=== PATIENT | female | born 1960 | race American Indian/Alaskan Native ===

== ENCOUNTER 2021-11-29 16:29 | Emergency (ER) | payer SELFPAY ==
[2021-11-29 17:03] VITALS: BP 166/105
[2021-11-29] MEDS ORDERED: ONDANSETRON 4 MG/2 ML INJ IV ONE (17:21)
[2021-11-29] MEDS ORDERED: FAMOTIDINE 20 MG/2 ML INJ IV ONE (17:21)
[2021-11-29] MEDS ORDERED: MORPHINE 4 MG/1 ML INJ IV ONE (17:21)
[2021-11-29] MEDS ORDERED: SODIUM CHLORIDE 0.9% 1000 ML 1,000 ML IV ONE (17:21)
--- NOTE | 2021-11-29 17:24 | Emergency Department Report ---
ED General Adult HPI - General Chief complaint: Nausea/Vomiting/Diarrhea Stated complaint: Abdominal pain, nausea, vomiting PUI?: No Time Seen by Provider: 11/29/21 17:14 Source: patient, RN notes reviewed Mode of arrival: Ambulatory Limitations: No Limitations - History of Present Illness Initial comments: The patient was evaluated in the emergency department for symptoms described in the history of present illness. He/she was evaluated in the context of the global COVID-19 pandemic, which necessitated consideration that the patient might be at risk for infection with the virus that causes COVID-19. Institutional protocols and algorithms that pertain to the evaluation of patients at risk for COVID-19 are in a state of rapid change based on information released by regulatory bodies including the CDC and federal and s tsang organizations. These policies and algorithms were followed during the patient's care in the emergency department. Please note that these policies, procedures and recommendations changed on a rapid basis. The patient is a 61-year-old female. She is not known to myself previously. She presents to the ER today with a complaint of diffuse abdominal pain, with a history of nausea and vomiting. This has been going on the past few days. She also endorses chest wall pain, associated with nausea and vomiting, but reports no chest pain which preceded nausea and vomiting. She denies travel, surgery, immobilization, leg pain, leg swelling, DVT/PE risk factors. She does consume alcohol recreationally, and she reports that she consumed alcohol earlier on this morning. She is also a tobacco smoker, and endorses a cough, productive of phlegm. The patient also states that she is not homicidal or suicidal. She denies irritative and obstructive urinary symptoms. -: Gradual, hour(s), days(s) Location: chest, abdomen Quality: aching Consistency: constant Improves with: none Worsens with: eating - Related Data Allergies Allergy/AdvReac Type Severity Reaction Status Date / Time No Known Allergies Allergy Unverified 11/29/21 17:02 ED Review of Systems ROS: Stated complaint: FLU LIKE SYMPTOMS Other details as noted in HPI Constitutional: malaise, weakness Eyes: denies: eye discharge Respiratory: cough, shortness of breath Cardiovascular: chest pain Gastrointestinal: abdominal pain, nausea, vomiting. denies: hematemesis, melena, hematochezia Genitourinary: denies: dysuria Neurological: weakness (Generalized weakness) Psychiatric: denies: homicidal thoughts, suicidal thoughts ED Physical Exam - General Limitations: No Limitations General appearance: alert, anxious - Head Head exam: Present: atraumatic, normocephalic - Eye Eye exam: Present: normal appearance, EOMI. Absent: nystagmus - ENT ENT exam: Present: normal exam, normal orophraynx, mucous membranes moist, normal external ear exam - Neck Neck exam: Present: normal inspection, full ROM. Absent: tenderness, meningismus - Respiratory Respiratory exam: Present: decreased breath sounds. Absent: respiratory distress, wheezes, rales, rhonchi, stridor - Cardiovascular Cardiovascular Exam: Present: regular rate, normal rhythm, normal heart sounds. Absent: bradycardia, tachycardia, irregular rhythm, systolic murmur, diastolic murmur, rubs, gallop - GI/Abdominal GI/Abdominal exam: Present: soft, tenderness. Absent: distended, guarding, rebound, rigid, pulsatile mass - Extremities Exam Extremities exam: Present: normal inspection, full ROM, other (2+ pulses noted in the bilateral upper and lower extremities. There is no palpable cord. negative Homans sign. Muscular compartments are soft. The pelvis is stable.). Absent: pedal edema, calf tenderness - Back Exam Back exam: Present: normal inspection, full ROM. Absent: tenderness, CVA tenderness (R), CVA tenderness (L), paraspinal tenderness, vertebral tenderness - Neurological Exam Neurological exam: Present: alert, oriented X3, normal gait, other (No facial droop. Tongue midline. Extraocular movements intact bilaterally. Facial sensation intact to light touch in V1, V2, V3 distribution bilaterally. 5 and a 5 strength in 4 extremities. Sensation intact to light touch in 4 extremities.). Absent: motor sensory deficit - Psychiatric Psychiatric exam: Present: anxious. Absent: homicidal ideation, suicidal ideation - Skin Skin exam: Present: warm, dry, intact, normal color. Absent: rash ED Course Vital Signs 11/29/21 17:02 Temperature 98.2 F Pulse Rate 109 H Respiratory 16 Rate Blood Pressure 166/105 [Right] O2 Sat by Pulse 98 Oximetry ED Medical Decision Making - Lab Data Result diagrams: 11/29/21 17:30 11/29/21 17:30 Vital Signs 11/29/21 17:02 Temperature 98.2 F Pulse Rate 109 H Respiratory 16 Rate Blood Pressure 166/105 [Right] O2 Sat by Pulse 98 Oximetry Lab Results 11/29/21 11/29/21 11/29/21 Range/Units 17:30 17:30 17:30 WBC 5.3 (4.5-11.0) K/mm3 RBC 4.46 (3.65-5.03) M/mm3 Hgb 14.5 H (10.1-14.3) gm/dl Hct 43.9 H (30.3-42.9) % MCV 99 H (79-97) fl MCH 33 H (28-32) pg MCHC 33 (30-34) % RDW 12.8 L (13.2-15.2) % Plt Count 135 L (140-440) K/mm3 Lymph % (Auto) 26.1 (13.4-35.0) % [place] % (Auto) 9.5 H (0.0-7.3) % Eos % (Auto) 0.3 (0.0-4.3) % Baso % (Auto) 0.4 (0.0-1.8) % Lymph # (Auto) 1.4 (1.2-5.4) K/mm3 [place] # (Auto) 0.5 (0.0-0.8) K/mm3 Eos # (Auto) 0.0 (0.0-0.4) K/mm3 Baso # (Auto) 0.0 (0.0-0.1) K/mm3 Seg Neutrophils % 63.7 (40.0-70.0) % Seg Neutrophils # 3.4 (1.8-7.7) K/mm3 Sodium 141 (137-145) mmol/L Potassium 3.9 (3.6-5.0) mmol/L Chloride 98.4 (98-107) mmol/L Carbon Dioxide 23 (22-30) mmol/L Anion Gap 24 mmol/L BUN 8 (7-17) mg/dL Creatinine 0.4 L (0.6-1.2) mg/dL Estimated GFR > 60 ml/min BUN/Creatinine Ratio 20 % Glucose 115 H (65-100) mg/dL Calcium 9.3 (8.4-10.2) mg/dL Magnesium 1.20 L (1.7-2.3) mg/dL Total Bilirubin 0.70 (0.1-1.2) mg/dL AST 183 H (5-40) units/L ALT 112 H (7-56) units/L Alkaline Phosphatase 153 H (35-129) units/L Total Creatine Kinase 75 (30-135) units/L Troponin T < 0.010 (0.00-0.029) ng/mL Total Protein 8.1 (6.3-8.2) g/dL Albumin 4.6 (3.9-5) g/dL Albumin/Globulin Ratio 1.3 % Lipase 438 H (13-60) units/L Plasma/Serum Alcohol 0.17 H (0-0.07) % - EKG Data -: EKG Interpreted by Vt EKG shows normal: sinus rhythm Rate: normal - EKG Data When compared to previous EKG there are: previous EKG unavailable 11/29/21 20:18 The EKG is interpreted at 17: 53 Sinus rhythm, 89 bpm. Normal axis, normal P wave axis, left ventricular hypertrophy. QTC is 471 ms. There is atrial enlargement. This is an abnormal EKG. This is not a STEMI. - Radiology Data Radiology results: pending, report reviewed, image reviewed CHEST 1 VIEW INDICATION: n/v cough chest pain. COMPARISON: None FINDINGS: SUPPORT DEVICES: None. HEART: Within normal limits. LUNGS/PLEURA: No acute air space or interstitial disease. ADDITIONAL FINDINGS: None. IMPRESSION: 1. No acute findings. Signer Name: Shahid Hawk MD Signed: 11/29/2021 4:44 PM Workstation Name: [id number] - Medical Decision Making Differential diagnosis, including but not limited to: Alcohol dependency, alcohol abuse, alcohol hepatitis, alcoholic gastritis, pancreatitis, GERD, gastritis, hiatal hernia, pneumonia, costochondritis, coronary artery disease, electrolyte derangement Assessment and plan: 61-year-old female, who is currently afebrile, with reassuring vital signs, tachycardia resolved, who is clinically sober, with a GCS of 15, who denies DVT and pulmonary embolism risk factors, who is low risk by Wells criteria for pulmonary embolism, who is likely a chronic alcoholic. Recommended appropriate laboratory studies, x-ray the chest, and CT scan of the abdomen pelvis. Have also recommended that we would treat this patient's symptoms. Patient presents is awake, alert, oriented, of sound mind, without distracting injury, and she exhibits decision-making capacity. Her elevated blood alcohol level on laboratory studies is reviewed and appreciated, but this patient's decision making is not impaired in my opinion. After my initial evaluation, the patient endorsed agreement with the plan of care. I was informed that the patient subsequently left AGAINST MEDICAL ADVICE without telling myself. Patient does not meet criteria for 1012 hold or 2012 hold/involuntary confinement. Critical care attestation.: If time is entered above; I have spent that time in minutes in the direct care of this critically ill patient, excluding procedure time. ED Disposition Clinical Impression: Elevated lipase, Transaminitis, Alcohol abuse, Tobacco abuse, Hypomagnesemia, Dehydration Disposition: 07 LEFT AGAINST MEDICAL ADVICE Is pt being admited?: No Does the pt Need Aspirin: No Condition: Undetermined Referrals: PRIMARY CAREMD [Primary Care Provider] - 3-5 Days Forms: AMA Form
--- NOTE | 2021-11-29 17:48 | XRay Report ---
CHEST 1 VIEW INDICATION: n/v cough chest pain. COMPARISON: None FINDINGS: SUPPORT DEVICES: None. HEART: Within normal limits. LUNGS/PLEURA: No acute air space or interstitial disease. ADDITIONAL FINDINGS: None. IMPRESSION: 1. No acute findings. Signer Name: Shahid Hawk MD Signed: 11/29/2021 5:44 PM Workstation Name: [id number]
[2021-11-29 17:57] LABS: Basophils % (Auto) 0.4 % (0.0-1.8); Eosinophils % (Auto) 0.3 % (0.0-4.3); Hematocrit 43.9 % (30.3-42.9); Hemoglobin 14.5 gm/dl (10.1-14.3); Lymphocytes # (Auto) 1.4 K/mm3 (1.2-5.4); Lymphocytes % (Auto) 26.1 % (13.4-35.0); Mean Corpuscular HGB Conc 33 % (30-34); Mean Corpuscular Volume 99 fl (79-97); Monocytes # (Auto) 0.5 K/mm3 (0.0-0.8); Monocytes % (Auto) 9.5 % (0.0-7.3); Platelet Count 135 K/mm3 (140-440); Red Blood Count 4.46 M/mm3 (3.65-5.03); Red Cell Distribution Width 12.8 % (13.2-15.2)
[2021-11-29 18:19] LABS: Alanine Aminotransferase 112 units/L (7-56); Albumin 4.6 g/dL (3.9-5); Blood Urea Nitrogen 8 mg/dL (7-17); Calcium 9.3 mg/dL (8.4-10.2); Hemolysis Index 8
[2021-11-29 18:22] LABS: BUN/Creatinine Ratio 20
== END 2021-11-29 18:39 | disposition left against medical advice (07) ==
LOC: EDBD → ED 16:29
DX: E83.42 Hypomagnesemia (principal); E86.0 Dehydration; R74.01 Elevation of levels of liver transaminase levels; F17.200 Nicotine dependence, unspecified, uncomplicated; R74.8 Abnormal levels of other serum enzymes
CPT/HCPCS: 36415; 71045; 80053; 82550; 83690; 83735; 84484; 85025; 93005; 99283; J2270; J2405; J3490; J7030; 80320; Q0162; G0480